=== PATIENT | male | born 1975 | race Caucasian/White ===

== ENCOUNTER 2016-12-31 17:16 | Emergency (ER) | payer SELFPAY ==
[2016-12-31 17:19] VITALS: BP 166/87; PULSE 82; RESP 15; TEMP 98.4; O2SAT 98
--- NOTE | 2016-12-31 17:54 | PD ---
HPI Chief Complaint: Flank/Kidney Pain Time Seen by Provider: 17:27 Travel History International Travel<30 days: No Contact w/Intl Traveler<30days: No Traveled to known affect area: No History of Present Illness HPI This is a 41 year old male who was diagnosed with a kidney stone on 12/20 and was given flomax and pain control. His pain has been persistent, constant, moderate severity, associated with vomiting and some intermittent diaphoresis. Pt. reports that at the time he was told that his stone may be too large to pass and he may need to have surgery. PFSH Past Medical History Medical History: Denies Significant Hx Social History Tobacco Use: No Allergies-Medications (Allergen,Severity, Reaction): Coded Allergies: No Known Allergies (Unverified , 12/31/16) Reported Meds & Prescriptions Reported Meds & Active Scripts Active No Active Prescriptions or Reported Medications Review of Systems Except as stated in HPI: all other systems reviewed are Neg Physical Exam Narrative GENERAL:Well appearing, no acute distress SKIN: Focused skin assessment warm and dry. HEAD: Atraumatic. Normocephalic. EYES: Pupils equal and round. No injection or drainage. ENT: Moist mucous membranes NECK: Trachea midline. CARDIOVASCULAR: Regular rate and rhythm. No murmur appreciated. RESPIRATORY: Clear to auscultation. Breath sounds equal bilaterally. GASTROINTESTINAL: Abdomen soft, tender to palpation in the suprapubic region with no rebound/guarding. MUSCULOSKELETAL: No obvious deformities. NEUROLOGICAL: Awake and alert. No obvious cranial nerve deficits. Moving all extremities PSYCHIATRIC: Appropriate mood and affect; insight and judgment normal. Data Data Last Documented VS Vital Signs Date Time Temp Pulse Resp B/P (MAP) Pulse Ox O2 Delivery O2 Flow Rate FiO2 12/31/16 17:41 16 12/31/16 17:19 98.4 82 166/87 (113) 98 Orders Orders Complete Blood Count With Diff (12/31/16 18:08) Comprehensive Metabolic Panel (12/31/16 18:08) ^ Insert Iv (12/31/16 18:08) Urinalysis - C+S If Indicated (12/31/16 18:08) Ct Abd/Pel W/O Iv Contrast (12/31/16 ) Labs Laboratory Tests Test 12/31/16 18:00 White Blood Count 6.3 TH/MM3 Red Blood Count 4.45 MIL/MM3 Hemoglobin 14.3 GM/DL Hematocrit 40.8 % Mean Corpuscular Volume 91.7 FL Mean Corpuscular Hemoglobin 32.1 PG Mean Corpuscular Hemoglobin Concent 35.0 % Red Cell Distribution Width 13.0 % Platelet Count 182 TH/MM3 Mean Platelet Volume 8.9 FL Neutrophils (%) (Auto) 54.2 % Lymphocytes (%) (Auto) 29.8 % Monocytes (%) (Auto) 9.0 % Eosinophils (%) (Auto) 6.4 % Basophils (%) (Auto) 0.6 % Neutrophils # (Auto) 3.4 TH/MM3 Lymphocytes # (Auto) 1.9 TH/MM3 Monocytes # (Auto) 0.6 TH/MM3 Eosinophils # (Auto) 0.4 TH/MM3 Basophils # (Auto) 0.0 TH/MM3 CBC Comment DIFF FINAL Differential Comment Urine Color LIGHT-YELLOW Urine Turbidity CLEAR Urine pH 6.5 Urine Specific [place] 1.010 Urine Protein NEG mg/dL Urine Glucose (UA) NEG mg/dL Urine Ketones NEG mg/dL Urine Occult Blood NEG Urine Nitrite NEG Urine Bilirubin NEG Urine Urobilinogen LESS THAN 2.0 MG/DL Urine Leukocyte Esterase NEG Urine WBC LESS THAN 1 /hpf Microscopic Urinalysis Comment CULT NOT INDICATED Blood Urea Nitrogen 16 MG/DL Creatinine 0.75 MG/DL Random Glucose 111 MG/DL Total Protein 7.5 GM/DL Albumin 3.7 GM/DL Calcium Level 8.6 MG/DL Alkaline Phosphatase 122 U/L Aspartate Amino Transf (AST/SGOT) 35 U/L Alanine Aminotransferase (ALT/SGPT) 47 U/L Total Bilirubin 0.6 MG/DL Sodium Level 140 MEQ/L Potassium Level 3.7 MEQ/L Chloride Level 109 MEQ/L Carbon Dioxide Level 25.5 MEQ/L Anion Gap 6 MEQ/L Estimat Glomerular Filtration Rate 114 ML/MIN [facility] Medical Decision Making Medical Screen Exam Complete: Yes Emergency Medical Condition: Yes Interpretation(s) afebrile, no tachycardia, hypertensive no leukocytosis electrolytes within normal limits urinalysis: no infection Last 24 hours Impressions Abdomen/Pelvis CT 12/31/16 0000 Signed Impressions: Service Date/Time: Saturday, December 31, 2016 18:24 - CONCLUSION: 1. 6 x 3 mm distal left ureteral calculus with no current hydronephrosis. 2. 2 tiny less than 1 mm left renal calculi. 3. Hepatic steatosis. Wayne Frankel MD Differential Diagnosis nephrolithiasis, pyelonephritis, urinary tract infection, hydronephrosis Narrative Course This is a 41-year-old male who presents to the emergency department with flank pain and intermittent vomiting. He actually appears very well. He evidently was diagnosed with a kidney stone at [facility] on December 20. Labs are obtained which are reassuring. CT demonstrates a 6 mm distal left ureteral stone with no hydronephrosis. He has no infection. I think is safe for discharge and he appears really well and I think his pain can be controlled as an outpatient. Eyes little concerned because of his insurance status. I talked to Dr. Hein who agreed to see him in clinic under a mandatory referral. Diagnosis Primary Impression: Left ureteral calculus Patient Instructions: General Instructions Additional Instructions: If you develop severe pain, inability to eat or drink, or fever return to the emergency department. Use a strainer to try to catch your stone. Take percocet as needed for pain, and continue taking zofran as needed for nausea. Complete your course of tamsulosin. Follow up with urology as soon as possible. Med/Other Pt SpecificInfo: Prescription(s) given Scripts Ondansetron Odt (Zofran Odt) 4 Mg Tab 4 MG SL Q6HR Y for Nausea/Vomiting, #30 TAB 0 Refills Prov: Ofe Clancy MD 12/31/16 Hydrocodone-Acetaminophen (Lortab) 5-325 Mg Tab 1 TAB PO Q6H Y for PAIN, #15 TAB 0 Refills Prov: Ofe Clancy MD 12/31/16 Tamsulosin (Tamsulosin) 0.4 Mg Cap 0.4 MG PO HS for Manage Prostate Problems for 5 Days, CAP 0 Refills Prov: Ofe Clancy MD 12/31/16 Disposition: 01 DISCHARGE HOME Condition: Stable Ofe Clancy MD Dec 31, 2016 17:54
[2016-12-31 18:25] LABS: AUTOMATED NEUTROPHIL # 3.4 TH/MM3 (1.8-7.7); BASOPHIL % 0.6 % (0.0-2.0); EOSINOPHIL # 0.4 TH/MM3 (0-0.4); EOSINOPHIL % 6.4 % (0.0-4.0); HEMATOCRIT 40.8 % (39.0-51.0); HEMO FLAGS DIFF FINAL; LYMPH % 29.8 % (9.0-44.0); LYMPHOCYTE # 1.9 TH/MM3 (1.0-4.8); MEAN CELL VOLUME 91.7 FL (80.0-100.0); MEAN CORPUSCULAR HEMOGLOBIN 32.1 PG (27.0-34.0); NEUT % 54.2 % (16.0-70.0); PLATELET COUNT 182 TH/MM3 (150-450); RED BLOOD COUNT 4.45 MIL/MM3 (4.50-5.90); WHITE BLOOD COUNT 6.3 TH/MM3 (4.0-11.0)
[2016-12-31 18:26] LABS: BLOOD, URINE NEG (NEG); COMMENT (UR) CULT NOT INDICATED; CULTURE IF INDICATED CULT NOT INDICATED; GLUCOSE,URINE NEG (NEG); KETONE, URINE NEG (NEG); NITRITE,URINE NEG (NEG); PH, URINE 6.5 (5.0-8.5); URINE COLOR LIGHT-YELLOW (YELLW/STRAW)
--- NOTE | 2016-12-31 18:40 | RADRPT ---
EXAM DATE/TIME: 12/31/2016 18:24 [facility] COMPARISON: No previous studies available for comparison. INDICATIONS : Left groin pain. ORAL CONTRAST: No oral contrast ingested. RADIATION DOSE: 6.57 CTDIvol (mGy) MEDICAL HISTORY : Renal calculi. SURGICAL HISTORY : None. ENCOUNTER: Initial ACUITY: 1 week PAIN SCALE: 6/10 LOCATION: Left lower quadrant TECHNIQUE: Volumetric scanning of the abdomen and pelvis was performed. Using automated exposure control and ad justment of the mA and/or kV according to patient size, radiation dose was kept as low as reasonably achievable to obtain optimal diagnostic quality images. DICOM format image data is available electro nically for review and comparison. FINDINGS: LOWER LUNGS: The visualized lower lungs are clear. LIVER: Homogeneous density without lesion. There is no dilation of the biliary tree. No calcified gallston es. There is hepatic steatosis. SPLEEN: Normal size without lesion. PANCREAS: Within normal limits. KIDNEYS: Normal in size and shape. There is no mass or hydronephrosis. There are 2 tiny 1 mm nonobstructing l eft renal calculi in the lower pole. There is a 6 x 3 mm distal left ureteral calculus just above the ureterovesicular junction. ADRENAL GLANDS: Within normal limits. VASCULAR: There is no aortic aneurysm. BOWEL/MESENTERY: The stomach, small bowel, and colon demonstrate no acute abnormality. There is no free intraperitone al air or fluid. ABDOMINAL WALL: Within normal limits. RETROPERITONEUM: There is no lymphadenopathy. BLADDER: No wall thickening or mass. REPRODUCTIVE: Within normal limits. INGUINAL: There is no lymphadenopathy or hernia. MUSCULOSKELETAL: Within normal limits for patient age. CONCLUSION: 1. 6 x 3 mm distal left ureteral calculus with no current hydronephrosis. 2. 2 tiny less than 1 mm left renal calculi. 3. Hepatic steatosis. Wayne Frankel MD on December 31, 2016 at 18:35 Board Certified Radiologist. This report was verified electronically.
[2016-12-31 18:44] LABS: ALT (GPT) 47 U/L (12-78)
[2016-12-31 18:46] LABS: ALKALINE PHOSPHATASE 122 U/L (45-117); TOTAL BILIRUBIN ADULT 0.6 MG/DL (0.2-1.0)
[2016-12-31 18:47] LABS: ANION GAP 6 MEQ/L (5-15); AST (GOT) 35 U/L (15-37); BICARBONATE 25.5 MEQ/L (21.0-32.0); BLOOD UREA NITROGEN 16 MG/DL (7-18); CHLORIDE 109 MEQ/L (98-107); GLOMERULAR FILTRATION RATE 114 ML/MIN (>89); POTASSIUM 3.7 MEQ/L (3.5-5.1); SODIUM (NA) 140 MEQ/L (136-145)
[2016-12-31] MEDS ORDERED: TAMS5CAP PO (19:05)
[2016-12-31] MEDS ORDERED: HYDR-3533 PO ×2 (19:05→19:08)
[2016-12-31] MEDS ORDERED: ZOFR4TAB3 SL (19:08)
[2016-12-31] MEDS ORDERED: TAMS0.4C4 PO (19:08)
== END 2016-12-31 20:02 | disposition home or self-care (01) ==
LOC: NEPD 17:16
DX: N20.1 Calculus of ureter (principal)
CPT/HCPCS: 74176; 80053; 81001; 85025; 99284

== ENCOUNTER 2017-04-21 08:24 | Emergency (ER) | payer SELFPAY ==
[~2017-04-21 08:24] MED LIST: AMOX500C PO
[2017-04-21 08:26] VITALS: BP 157/87; PULSE 67; RESP 16; TEMP 98.7; O2SAT 97
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
== END 2017-04-21 10:17 | disposition home or self-care (01) ==
LOC: NEPD 08:24
DX: S46.911A Strain of unspecified muscle, fascia and tendon at shoulder and upper arm level, right arm, initial encounter (principal); V18.4XXA Pedal cycle driver injured in noncollision transport accident in traffic accident, initial encounter
CPT/HCPCS: 73030; 99283